=== PATIENT | female | born 1995 | race Caucasian/White ===

== ENCOUNTER 2018-06-11 09:48 | Emergency (ER) | payer OTHER ==
[~2018-06-11] VITALS: Ht 182.9 cm; Wt 81.7 kg
[2018-06-11] MEDS ORDERED: PROZAC10 MG PO (10:46)
[2018-06-11] MEDS ORDERED: BIRTH CONTROL (10:47)
[2018-06-11 10:55] LABS: ABSOLUTE NEUTROPHILS 4.8 thou/uL (1.4-8.2); BASOPHILS 0.4 % (0.0-2.0); EOSINOPHILS 1.3 % (0.0-3.0); HEMATOCRIT 38.5 % (37.0-47.0); HEMOGLOBIN 12.7 gm/dL (12.0-15.0); LYMPHOCYTES 23.1 % (24.0-44.0); MCH 28.9 pg (26.0-34.0); MCHC 33.1 g/dL (28.0-37.0); MCV 87.5 fL (80.0-100.0); MONOCYTES 8.4 % (1.0-8.0); PLATELET COUNT 221 thou/uL (150-400); POLYS 66.8 % (36.0-66.0); RBC 4.39 mil/uL (4.20-5.00); RDW 13.7 % (10.5-14.5); WBC 7.2 thou/uL (4.0-11.0)
[2018-06-11 11:03] LABS: CALCIUM 9.6 mg/dL (8.5-10.1); CREATININE 0.9 mg/dL (0.6-1.0); POTASSIUM 3.9 mmol/L (3.5-5.1)
[2018-06-11] MEDS ORDERED: IBUPROFEN 600600 M1 PO (13:05)
[2018-06-11] MEDS ORDERED: NORFLEX100 MG PO (13:05)
[2018-06-11] MEDS ORDERED: SENNA-DOCUSATE1 EACH PO (13:05)
[2018-06-11] MEDS ORDERED: NORCO 5-325 TA1 EACH PO (13:05)
[2018-06-11] MEDS ORDERED: PERCOCET 5-3251 EACH PO (13:11)
== END 2018-06-11 14:09 | disposition home or self-care (01) ==
LOC: ER 09:48
PROVIDERS: Emergency Medicine
DX: S80.11XA Contusion of right lower leg, initial encounter (principal); S80.211A Abrasion, right knee, initial encounter; S80.212A Abrasion, left knee, initial encounter; S30.811A Abrasion of abdominal wall, initial encounter; S70.212A Abrasion, left hip, initial encounter; V89.2XXA Person injured in unspecified motor-vehicle accident, traffic, initial encounter; Y93.89 Activity, other specified; Y92.89 Other specified places as the place of occurrence of the external cause; Y99.8 Other external cause status